=== PATIENT | male | born 1950 | race Caucasian/White ===

== ENCOUNTER 2022-08-09 12:50 | Emergency (ER) | payer OTHER, MEDICAID ==
[~2022-08-09] VITALS: Ht 167.6 cm; Wt 90.7 kg
[2022-08-09 12:56] VITALS: BP_SYST 127
--- NOTE | 2022-08-09 13:41 | NUR ---
Patient to ER bed 02 to gown for evaluation. Side rails up.
--- NOTE | 2022-08-09 13:45 | NUR ---
Patient found in bed 2 for c/o left skin laceration above the eyebrow. Patient's son said that patient was at [facility] in morning and was found by employee to have fallen. Patient's son said that the [employer] of [facility] said that patient lost consciousness upon falling but unable to determine how many minutes. Patient is alert and oriented x4. Respiration even and unlabored. No shortness of breath. No c/o pain. Patient has a gauze on left side of face where laceration is. Lac tray set up at bedside. Will continue to monitor. Call light within reach.
--- NOTE | 2022-08-09 14:30 | NUR ---
Dr. Workman made rounds to see patient.
[2022-08-09] MEDS ORDERED: LIDOCAINE/EPI 1% 1:100000 20 ML VIAL INJ ONE (15:00)
[2022-08-09] MEDS ORDERED: NAPR-690 PO (15:40)
[2022-08-09] MEDS ORDERED: IBUPROFEN 600 MG TABLET PO ONE (15:45)
--- NOTE | 2022-08-09 16:28 | NUR ---
Patient given written and verbal discharge instructions and verbalizes understanding. ER MD discussed with patient the results and treatment provided. Patient in stable condition. ID arm band removed. Rx of naproxen given. Patient educated on pain management and to follow up with PMD. Pain Scale . Opportunity for questions provided and answered. Medication side effect fact sheet provided.
[2022-08-09 16:31] VITALS: BP_SYST 120
== END 2022-08-09 16:31 | disposition home or self-care (01) ==
LOC: SED 12:50
DX: S01.112A Laceration without foreign body of left eyelid and periocular area, initial encounter (principal); I10 Essential (primary) hypertension; E78.5 Hyperlipidemia, unspecified; Z79.899 Other long term (current) drug therapy; W18.30XA Fall on same level, unspecified, initial encounter; Y93.89 Activity, other specified; Y92.89 Other specified places as the place of occurrence of the external cause; Y99.8 Other external cause status
CPT/HCPCS: 70450-TC; 76376; 99284